=== PATIENT | male | born 1955 | race Caucasian/White ===

== ENCOUNTER → 2017-08-15 | Outpatient (CLI) | payer OTHER | LOC: FIMAGING 15:34 | PROVIDERS: ATTEND Orthopaedic Surgery | DX: M25.511 Pain in right shoulder (principal); M75.21 Bicipital tendinitis, right shoulder; M75.81 Other shoulder lesions, right shoulder; M75.111 Incomplete rotator cuff tear or rupture of right shoulder, not specified as traumatic; M19.011 Primary osteoarthritis, right shoulder ==

== ENCOUNTER 2017-09-21 05:47 | Day surgery (SDC) | payer OTHER ==
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
[2017-09-21] MEDS ORDERED: ceFAZolin 2 GM/SWFI 2 GM/20 ML SYR IVP ONE (06:20)
[2017-09-21] MEDS ORDERED: ACETAMINOPHEN 500 MG TAB PO ONE (06:20)
[2017-09-21] MEDS ORDERED: LR 1,000 ML IV SCH (06:20)
[2017-09-21] MEDS ORDERED: LR 1,000 ML IV ONE (06:21)
[2017-09-21] MEDS ORDERED: LIDOCAINE 1% 2 ML INJ ID PRN (06:21)
--- NOTE | 2017-09-21 06:33 | PDANEPAE ---
ANE Past Medical History - Cardiovascular History Hx Hypertension: No Hx Arrhythmias: No Hx Chest Pain: No Hx Coronary Artery / Peripheral Vascular Disease: No Hx CHF / Valvular Disease: No Hx Palpitations: No - Pulmonary History Hx COPD: No Hx Asthma/Reactive Airway Disease: No Hx Recent Upper Respiratory Infection: No Hx Oxygen in Use at Home: No Hx Sleep Apnea: No Sleep Apnea Screening Result - Last Documented: Negative - Neurologic History Hx Cerebrovascular Accident: No Hx Seizures: No Hx Dementia: No Neurologic History Comment: occasional migraines - Endocrine History Hx Diabetes: No Hypothyroid: No Hyperthyroid: No Obesity: no - Renal History Hx Renal Disorders: No - Liver History Hx Hepatic Disorders: No - Neurological & Psychiatric Hx Hx Neurological and Psychiatric Disorders: No - Cancer History Hx Cancer: No - Congenital Disorder History Hx Congenital Disorders: No - GI History GERD: no Hx Gastrointestinal Disorders: No - Other Health History Other Health History: NEG - Chronic Pain History Chronic Pain: No - Surgical History Prior Surgeries: VASECTOMY ANE Review of Systems Review of Systems: - Exercise capacity METS (RN): 5 METS ANE Patient History - Allergies Allergies/Adverse Reactions: No Known Allergies Allergy (Unverified 09/16/17 15:30) - Home Medications Home Medications: Imitrex 09/16/17 [Last Taken 2 Weeks Ago ~09/07/17] - NPO status NPO Since - Liquids (Date): 09/21/17 NPO Since - Liquids (Time): 02:00 NPO Since - Solids (Date): 09/20/17 NPO Since - Solids (Time): 19:00 - Anes Hx Anes Hx: no prior problems - Smoking Hx Smoking Status: Never smoked Marijuana use: No - Alcohol Use Alcohol Use: Rarely - Family Anes Hx Family Anes Hx: neg - N/A Family Hx Anesthesia Complications: NEG ANE Labs/Vital Signs - Vital Signs Height: 180.34 cm Weight: 68.039 kg ANE Physical Exam - Airway Neck exam: FROM Mallampati Score: Class 1 Mouth exam: normal dental/mouth exam - Pulmonary Pulmonary: no respiratory distress, no rales or rhonchi, clear to auscultation - Cardiovascular Cardiovascular: regular rate and rhythym, no murmur, rub, or gallop - ASA Status ASA Status: I ANE Anesthesia Plan Anesthesia Plan: GA w LMA Regional Anesthesia: supraclavicular BP NB Total IV Anesthesia: No
[2017-09-21] MEDS ORDERED: BUPIVACAINE 0.25% 30 ML SDV ONE (06:38)
[2017-09-21] MEDS ORDERED: MIDAZOLAM 2 MG/2 ML VIAL ONE (07:12)
[2017-09-21] MEDS ORDERED: NALOXONE HCL 0.4 MG/ML INJ IVP PRN (07:19)
[2017-09-21] MEDS ORDERED: PROMETHAZINE HCL 25 MG/ML INJ IVP PRN (07:19)
[2017-09-21] MEDS ORDERED: fentaNYL 100 MCG/2 ML INJ IVP PRN (07:19)
[2017-09-21] MEDS ORDERED: MEPERIDINE 25 MG/ML SYR IVP PRN (07:19)
[2017-09-21] MEDS ORDERED: ONDANSETRON 4 MG/2 ML VIAL IVP PRN (07:19)
[2017-09-21] MEDS ORDERED: epHEDrine SULFATE 10 MG/ML SYR IVP PRN (07:19)
[2017-09-21] MEDS ORDERED: ACETAMINOPHEN 500 MG TAB PO PRN (07:19)
[2017-09-21] MEDS ORDERED: MIDAZOLAM 2 MG/2 ML VIAL IVP ONE (07:19)
[2017-09-21] MEDS ORDERED: HYDROCODONE/APAP 5/325 TAB PO PRN (07:19)
[2017-09-21] MEDS ORDERED: LR 500 ML IV PRN (07:19)
[2017-09-21] MEDS ORDERED: PHENYLEPHRINE HCL 100 MCG/ML SYR IVP PRN (07:19)
[2017-09-21] MEDS ORDERED: oxyCODONE IR 5 MG TAB PO PRN (07:19)
[2017-09-21] MEDS ORDERED: PROPOFOL 200 MG/20 ML VIAL ONE (07:22)
[2017-09-21] MEDS ORDERED: fentaNYL 100 MCG/2 ML INJ ONE ×3 (07:22→09:28)
[2017-09-21] MEDS ORDERED: DEXAMETHASONE 4 MG/ML VIAL ONE (07:24)
[2017-09-21] MEDS ORDERED: ONDANSETRON 4 MG/2 ML VIAL ONE (07:24)
[2017-09-21] MEDS ORDERED: ROPIVACAINE HCL 150 MG/30 ML INJ ONE (07:25)
[2017-09-21] MEDS ORDERED: LIDOCAINE 2% 5 ML SDV ONE (07:25)
[2017-09-21] MEDS ORDERED: clonIDINE 1 MG/10 ML VIAL EP ONE (07:29)
--- NOTE | 2017-09-21 07:31 | PDHPUP ---
History & Physical Update H&P update statement: This history and physical update is based on an assessment of the patient which was completed after admission or registration (within 24 hours), but prior to the surgery/procedure. H&P update: H&P reviewed & patient examined (see H and P) H&P changes: no change
[2017-09-21] MEDS ORDERED: DEPO METHYLPREDNISOLONE 40 MG/ML SDV ONE ×2 (08:24→08:42)
[2017-09-21] MEDS ORDERED: LIDOCAINE 1% 300 MG/30 ML SDV ONE (08:25)
--- NOTE | 2017-09-21 10:09 | GOP ---
[f rep st] OPERATIVE REPORT DATE OF OPERATION: SURGEON: Rey Souza MD SUBSTATION WIREMAN: KELSIE Jackman, LSA ANESTHESIOLOGIST: Kolby Alvarez DO PREOPERATIVE DIAGNOSIS: Right shoulder impingement, rotator cuff tendinosis, long head biceps tendin osis, superior labral pathology. POSTOPERATIVE DIAGNOSIS: Right shoulder chronic impingement, rotator cuff tendinosis, mild long head biceps tendinosis, superior labral tear. PROCEDURE PERFORMED: Right shoulder arthroscopy, superior labral debridement, arthroscopic subacromi al decompression. FINDINGS: At surgery, exam under anesthesia demonstrates a stable shoulder that is flexible. On art hroscopy, the glenohumeral joint has intact articular surfaces. The superior labrum has a bucket-sha ped tear of the superior labrum that drapes a little bit into the joint, and it is surrounded by cons iderable synovitis. Because of the MRI findings, the long head biceps was very carefully inspected, and I pulled the biceps into the joint with the shaver tip. The biceps was in good shape. The tendo n was round. The fibers were undisturbed. There was no visible split or fraying of the tendon, so I chose not to tenodese it. The undersurface of the cuff had a little abrasion, but the bulk of the c uff was intact. The superior surface of the cuff had some abrasion. There was bony impingement lorena rodo, and there was subacromial bursitis. SPECIMENS: None. ESTIMATED BLOOD LOSS: Minimal. INDICATIONS: The patient is a 62-year-old male who presents with about a year of symptoms involving his right shoulder. Clinically, he presents as impingement. The MRI of his right shoulder shows a b iceps pathology. There is superior labral fraying and pathology. There is cuff tendinosis without f ull-thickness tear and bony impingement anatomy. He is nontender around the AC joint. DESCRIPTION OF PROCEDURE: The patient was taken to the operating room, placed supine on the operatin g table, placed under general anesthetic with laryngeal mask ventilation. He received 2 g of IV Ance f. He was rolled left side down on a quintana bag and an axillary roll. All bony prominences were well padded, and the operative right arm was placed in 10 pounds of longitudinal traction. I used a chlor hexidine prep, standard arthroscopy draping for the shoulder, right side, 10 pounds of traction. I e stablished standard arthroscopy portals, and through the anterior portal, I used a rotary shaver to c lean up the superior labrum that had a frayed component that was draping into the joint and was surro unded by considerable synovitis. As noted, I took a very careful look at the biceps, and the tendon was in good shape, so I did not tenodese it. I then placed 10 cc of 0.5% plain lidocaine with 40 mg of Depo-Medrol in the joint to address the superior synovitis. I then placed the scope in the subacr omial space, established a lateral portal. I used a shaver and a tissue ablator to clean out the bur sa and to define the undersurface of the acromion. I used an acromionizer bur to flatten the undersu rface of the cuff. I also removed a prominent undersurface of the distal clavicle. The bone resecti on released the coracoacromial ligament, and I did a bursectomy. I placed 10 cc of 0.5% plain Marcai ne in the subacromial space with 1 cc of Depo-Medrol 40 mg/cc, and I closed the portals with 4-0 Prol david. The wounds were dressed with Betadine-soaked Adaptic, 4x4s, ABD pads, and Hypafix tape, and he will go into a sling. COMPLICATIONS: None. DRAINS: None. COUNTS: All counts correct. The patient was taken in stable condition to Recovery. /[id number]/MODL
--- NOTE | 2017-09-21 10:23 | POSTANESTH ---
Post Anesthetic Evaluation Cardiovascular Status: Normal, Stable Respiratory Status: Normal, Stable Level of Consciousness/Mental Status: Can Participate in Eval Pain Control: Adequate, Prn Tx Ordered Nausea/Vomiting Control: Adequate, Prn Tx Ordered Complications Possibly Related to Anesthesia: None Noted
[2017-09-21] MEDS ORDERED: HYDROCODONE/APAP 5/325 TAB ONE (10:49)
[2017-09-21 11:31] VITALS: BP 124/82
== END 2017-09-21 11:20 | disposition home or self-care (01) ==
LOC: FSGY 05:47
PROVIDERS: ATTEND Orthopaedic Surgery
DX: M25.811 Other specified joint disorders, right shoulder (principal); M75.21 Bicipital tendinitis, right shoulder; M75.81 Other shoulder lesions, right shoulder; M75.111 Incomplete rotator cuff tear or rupture of right shoulder, not specified as traumatic; M19.011 Primary osteoarthritis, right shoulder
CPT/HCPCS: J0171; J0690; J0735; J1030; J1100; J2250; J2405; J2704; J2795; J3010